=== PATIENT | female | born 1990 | race Caucasian/White ===

== ENCOUNTER → 2023-07-26 | Outpatient (REF) | LOC: M CAHLAB 13:34 | PROVIDERS: ATTEND Obstetrics & Gynecology Obstetrics | DX: Z03.79 Encounter for other suspected maternal and fetal conditions ruled out (principal) ==

== ENCOUNTER 2025-06-06 12:10 | Inpatient (IN) | payer OTHER ==
[~2025-06-06] VITALS: Ht 172.7 cm; Wt 113.2 kg
[2025-06-06] MEDS: dexAMETHasone 4 MG/ML 1 ML VIAL IV SCH (09:00)
[2025-06-06] MEDS ORDERED: ACET1TAB55 PO (12:17)
[2025-06-06] MEDS ORDERED: BUPR8SUB SL (12:17)
[2025-06-06] MEDS: ACETAMINOPHEN 325 MG TAB PO ONE (14:14)
[2025-06-06] MEDS: KETOROLAC 30 MG/ML 1 ML VIAL IV ONE ×2 (14:15→16:16)
[2025-06-06] MEDS: NS (Normal Saline) 0.9% 1,000 ML IV ONE (14:15)
[2025-06-06 14:16] LABS: BASO # 0.0 10^3/uL (0.0-0.2); BASO % 0.3 % (0.0-1.0); EOS # 0.1 10^3/uL (0.0-0.5); EOS % 1.3 % (0.0-3.0); LYMPH # 0.4 10^3/uL (1.5-5.0); LYMPH % 4.2 % (24.0-44.0); MONO # 1.0 10^3/uL (0.0-0.8); MONO % 11.3 % (2.0-8.0); NEUTROPHILS # 7.2 10^3/uL (1.5-8.5); NEUTROPHILS % 82.2 % (36.0-66.0); PLATELET COUNT, AUTOMATED 234 10^3/uL (150-450)
[2025-06-06 14:47] LABS: CALCIUM LEVEL 8.9 MG/DL (8.5-10.1); CARBON DIOXIDE LEVEL 24 MMOL/L (20-31); CHLORIDE LEVEL 100 MMOL/L (98-107); CREATININE FOR GFR 0.84 MG/DL (0.55-1.30); GLOMERULAR FILTRATION RATE > 90.0 (>60); POTASSIUM SERUM 4.6 MMOL/L (3.5-5.1); SODIUM LEVEL 137 MMOL/L (136-145)
[2025-06-06] MEDS ORDERED: MED REC IN PROGRESS XX SCH (17:15)
[2025-06-06 17:19] LABS: KETONE, URINE AUTO RFX NEGATIVE (NEGATIVE); LEUKOCYTE ESTERASE UR AUTO RFX NEGATIVE (NEGATIVE); NITRITE, URINE AUTO RFX NEGATIVE (NEGATIVE); RBC, URINE AUTO RFX 0 /HPF (0-3); SQUAM EPITHELIAL CELL UR AURFX 1 /HPF (0-6); WBC, URINE AUTO RFX 1 /HPF (0-3)
[2025-06-06] MEDS ORDERED: GABA-1172 PO (18:03)
[2025-06-06] MEDS ORDERED: MIRT-11 PO (18:03)
[2025-06-06] MEDS ORDERED: LORA-1164 PO (18:03)
[2025-06-06] MEDS ORDERED: PANT-23 PO (18:03)
[2025-06-06] MEDS ORDERED: KEPP1TAB PO (18:04)
[2025-06-06] MEDS ORDERED: CLON0.3T PO (18:04)
[2025-06-06] MEDS ORDERED: HOME MED LIST COMPLETE! XX SCH (18:05)
[2025-06-06] MEDS ORDERED: med rec comment (18:05)
[2025-06-06 19:41] LABS: MAGNESIUM LEVEL 1.9 MG/DL (1.8-2.4)
[2025-06-06 19:42] LABS: C REACTIVE PROTEIN QUANTITATIV 1.94 MG/DL (<1.0)
[2025-06-06] MEDS ORDERED: BUPRENORPHINE/NALOXONE 8-2MG SUBLINGUAL TABLET(SUBOXONE) SL SCH (21:00)
[2025-06-06] MEDS: BUPRENORPHINE/NALOXONE 8-2MG SUBLINGUAL TABLET(SUBOXONE) SL SCH (22:49)
[2025-06-07] VITALS (9 sets, daily range): BP systolic 111–123; BP diastolic 53–57; TEMP 97–98.9; O2SAT 92–97
[2025-06-07] MEDS: ACETAMINOPHEN 500 MG TAB PO PRN ×2 (00:31→11:56)
[2025-06-07] MEDS: REMDESIVIR 200 MG in NS 250 ML IV ONE (01:59)
[2025-06-07] MEDS: KETOROLAC 30 MG/ML 1 ML VIAL IV PRN (02:00)
[2025-06-07 06:39] LABS: BASO # 0.0 10^3/uL (0.0-0.2); BASO % 0.6 % (0.0-1.0); EOS # 0.0 10^3/uL (0.0-0.5); EOS % 0.2 % (0.0-3.0); LYMPH # 0.9 10^3/uL (1.5-5.0); LYMPH % 19.3 % (24.0-44.0); MONO # 0.9 10^3/uL (0.0-0.8); MONO % 18.9 % (2.0-8.0); NEUTROPHILS # 2.9 10^3/uL (1.5-8.5); NEUTROPHILS % 60.6 % (36.0-66.0); PLATELET COUNT, AUTOMATED 204 10^3/uL (150-450)
[2025-06-07 07:13] LABS: CALCIUM LEVEL 8.0 MG/DL (8.5-10.1); CARBON DIOXIDE LEVEL 25.0 MMOL/L (20-31); CHLORIDE LEVEL 105.0 MMOL/L (98-107); CREATININE FOR GFR 0.88 MG/DL (0.55-1.30); GLOMERULAR FILTRATION RATE 88.9 (>60); MAGNESIUM LEVEL 2.0 MG/DL (1.8-2.4); POTASSIUM SERUM 4.6 MMOL/L (3.5-5.1); SODIUM LEVEL 139.0 MMOL/L (136-145)
[2025-06-07] MEDS: ENOXAPARIN 40 MG/0.4 ML SYRINGE (J1650 PER 10MG) SC SCH (09:00)
[2025-06-07] MEDS ORDERED: CLONI1TA PO (15:25)
[2025-06-07] MEDS: BUPRENORPHINE/NALOXONE 8-2MG SUBLINGUAL TABLET(SUBOXONE) SL SCH (17:40)
[2025-06-08 00:45] VITALS: BP 101/52; TEMP 97.5; O2SAT 97
[2025-06-08 04:02] VITALS: BP 112/59; TEMP 97; O2SAT 92
[2025-06-08 07:01] LABS: BASO # 0.0 10^3/uL (0.0-0.2); BASO % 0.2 % (0.0-1.0); EOS # 0.0 10^3/uL (0.0-0.5); EOS % 0.2 % (0.0-3.0); LYMPH # 1.5 10^3/uL (1.5-5.0); LYMPH % 28.6 % (24.0-44.0); MONO # 0.6 10^3/uL (0.0-0.8); MONO % 10.8 % (2.0-8.0); NEUTROPHILS # 3.2 10^3/uL (1.5-8.5); NEUTROPHILS % 60.0 % (36.0-66.0); PLATELET COUNT, AUTOMATED 179 10^3/uL (150-450)
[2025-06-08 07:30] LABS: CALCIUM LEVEL 8.8 MG/DL (8.5-10.1); CARBON DIOXIDE LEVEL 23 MMOL/L (20-31); CHLORIDE LEVEL 108 MMOL/L (98-107); CREATININE FOR GFR 0.68 MG/DL (0.55-1.30); GLOMERULAR FILTRATION RATE > 90.0 (>60); MAGNESIUM LEVEL 1.8 MG/DL (1.8-2.4); POTASSIUM SERUM 3.9 MMOL/L (3.5-5.1); SODIUM LEVEL 143 MMOL/L (136-145)
[2025-06-08 07:53] VITALS: BP 103/59; TEMP 95.6; O2SAT 98
[2025-06-08 12:00] VITALS: BP 111/57; TEMP 96.3; O2SAT 98
[2025-06-08 16:00] VITALS: BP 106/56; TEMP 94.7; O2SAT 100
== END 2025-06-08 19:45 | disposition home or self-care (01) | DRG 137 ==
LOC: M ED 12:10 → M ED INP 17:36 → M MS4PR 06-07 00:50
PROVIDERS: ADMIT Family Medicine; ATTEND Family Medicine
PROC: XW033E5 Introduction of Remdesivir Anti-infective into Peripheral Vein, Percutaneous Approach, New Technology Group 5 (ICD-10-PCS; principal; 2025-06-06)
PROC: 3E0333Z Introduction of Anti-inflammatory into Peripheral Vein, Percutaneous Approach (ICD-10-PCS; 2025-06-06)
DX: U07.1 COVID-19 (principal); J12.82 Pneumonia due to coronavirus disease 2019; G40.909 Epilepsy, unspecified, not intractable, without status epilepticus; F17.290 Nicotine dependence, other tobacco product, uncomplicated; F11.11 Opioid abuse, in remission

== ENCOUNTER → 2025-09-02 | Outpatient (CLI) | payer OTHER ==
[~2025-09-02] MED LIST: ACET1TAB55 PO; BUPR8SUB SL; CLON0.3T PO; CLONI1TA PO; GABA-1172 PO; KEPP1TAB PO; LORA-1164 PO; MIRT-11 PO; PANT-23 PO; med rec comment
== END ==
LOC: M RAD 12:22
DX: R76.11 Nonspecific reaction to tuberculin skin test without active tuberculosis (principal)

== ENCOUNTER → 2025-10-31 | Outpatient (REF) | payer OTHER | LOC: M LAB REF 11:32 | PROVIDERS: ATTEND Physician Assistant | DX: B34.9 Viral infection, unspecified (principal) ==